=== PATIENT | male | born 1990 | race Caucasian/White ===

== ENCOUNTER 2016-12-21 00:50 | Emergency (ER) | payer SELFPAY ==
[~2016-12-21] VITALS: Ht 180.3 cm; Wt 70.3 kg
[2016-12-21 00:53] VITALS: BP 126/79
[2016-12-21] MEDS ORDERED: TETANUS-DIPTH-ACEL PERTUSSIS 0.5ML SYRG IM ONE (01:45)
== END 2016-12-21 01:41 | disposition home or self-care (01) ==
LOC: ER 00:52
DX: S61.001A Unspecified open wound of right thumb without damage to nail, initial encounter (principal); Z88.8 Allergy status to other drugs, medicaments and biological substances; W26.9XXA Contact with unspecified sharp object(s), initial encounter; Y93.89 Activity, other specified; Y99.8 Other external cause status; Y92.89 Other specified places as the place of occurrence of the external cause
CPT/HCPCS: 90471; 90715

== ENCOUNTER 2024-11-25 01:37 | Emergency (ER) | payer MEDICAID, OTHER ==
[~2024-11-25] VITALS: Ht 180.3 cm; Wt 92.6 kg
--- NOTE | 2024-11-25 02:17 | ED.PDOC ---
HPI Comments reffa: gurdeep HPI: Poor Historian. 34-year-old male presents to emergency department for evaluation of chest pain. He has been having proximally one-week history of dull midsternal chest discomfort but earlier past midnight patient had a left sided chest pain that woke him up from his sleep. Pain is nonradiating. No alleviating or precipitating factors. Pain was associated with some mild weakness and dizziness. Patient is accompanied by two children with him on his side. Patient ambulating independently in the ED. pain scale is currently 4/10. Patient was seen by Cardiology approximately five years ago and he said everything was normal. Past Medical History: Anxiety, Depression Past Surgical History: Denies any REVIEW OF SYSTEMS: CONSTITUTIONAL: Denies acute: fever, diaphoresis, chills, generalized weakness. HEAD: Denies acute: headache, photophobia Eyes: Denies acute: Double vision, vision loss, eye pain, eye discharge. EARS: Denies acute: tinnitus, hearing loss, ear discharge, ear pain, THROAT: Denies acute: sore throat, swelling, difficulty swallowing , pain with swallowing, change in voice. NECK: Denies acute: neck pain, neck swelling, stiff neck. HEART: Denies acute : palpitations, LUNGS: Denies acute: SOB, wheezing, cough, hemoptysis ABDOMEN: Denies acute: abdominal pain, Nausea, Vomiting, diarrhea, melena , hematemesis, hematochezia SKIN: Denies acute: rash, redness, lesions, itchiness. EXTREMITIES: Denies acute: calf pain, numbness, tingling, weakness, denies pain in extremity. Denies acute: Low back pain. Neuro: Denies acute: focal neurological deficit, motor or sensory focal neurological deficit, tremors, seizure like activity, confusion, dizziness, change in mental status, loss of bowel or bladder function, cauda equina like symptoms. : Denies acute: dysuria, hematuria, flank pain, increase in urinary frequency. PSYCH: Denies acute: hallucination, suicidal ideation, homicidal ideation. PHYSICAL EXAM: General: ----no----acute distress, awake and alert. Multiple tattoos Head: normocephalic, atraumatic. Neck: supple, trachea is midline, no swelling. Throat: Normal phonation. Eyes:, no erythema, no purulent discharge, no proptosis, no icterus. Heart: regular rate, regular rhythm, no significant murmur appreciated. Lungs: no apparent respiratory distress, Able to speak in full sentences. No wheezing, no rhonchi, no crackles. No stridors Clear to auscultation bilaterally. Abdomen: non tender to palpation, non distended, soft, no guarding, no rebound, + bowel sounds. Neuro: Awake, Alert, oriented to name, self, situation, follows commands GCS=15. Speech is normal. Skin: no petechia, no purpura, no cyanosis, non-pale, not jaundice. Lower extremities: --no - Pitting edema no deformity, no focal swelling, no calf TTP. Makes eye contact. moves all four extremities. Face: no apparent facial droop. Ambulating in the ED independently. ED COURSE: DISCLAIMER: This medical document was created using an electronic medical record system with voice recognition software and computerized dictation system. Although this document has been carefully reviewed, there might still be some phonetic and typ ographical errors. Occasional wrong-word or "sound-alike" substitutions may have occurred due to the inherent limitations of voice recognition software. These areas are purely typographical due to imperfections of the software programs and do not reflect any compromise in the patient's medical care. Please read the chart carefully and recognize, using context, where these substitutions have occurred. Chief Complaint: Chest Pain Time Seen by MD: 02:15 Primary Care Provider: UNK Reviewed Notes: Allergies Allergies: Coded Allergies: Cephalosporins (Verified Allergy, Unknown, 12/21/16) Sulfa Antibiotics (Verified Allergy, Unknown, 11/26/24) Home Meds No Active Prescriptions or Reported Meds Information Source: Patient Mode of Arrival: Ambulatory Past Medical History PAST MEDICAL HISTORY: Denies Surgical History: Denies all surgeries Social History Smoker: Non-Smoker Alcohol: Denies ETOH Use Drugs: Denies Drug Use Lives In: Home Was a procedure done? Was a procedure done?: No CP Differential Dx Differential Diagnosis: N/A Differential Diagnosis: Other (Ddx include but not limitied to gastritis, musculoskeletal pain, radiculopathy, atypical chest pain, dissection, aneurysm, ACS, unstable angina, hiatal hernia, GERD, anxiety, costochondritis, PE, pneumothroax, neoplasm, cardiac ischemia, drug abuse, anemia.) X-Ray, Labs, Meds, VS Vital Signs Date Time Temp Pulse Resp B/P (MAP) Pulse Ox O2 Delivery O2 Flow Rate FiO2 11/25/24 05:30 99 Room Air* 0 21 11/25/24 05:29 97.8 70 14 123/80 (94) 99 97.8 11/25/24 02:51 73 11/25/24 01:43 88 11/25/24 01:37 98.1 81 18 131/85 97 98.1 Lab Test 11/25/24 03:00 11/25/24 02:47 11/25/24 01:46 Range/Units Urine Opiates Screen Neg NEGATIVE Urine Fentanyl Screen Neg NEGATIVE Urine Barbiturates Screen Neg NEGATIVE Urine Phencyclidine Screen Neg NEGATIVE Urine Amphetamines Screen Neg NEGATIVE Urine Benzodiazepines Screen Pos NEGATIVE Urine Cocaine Screen Neg NEGATIVE Urine Cannabinoids Screen Neg NEGATIVE Troponin I High Sensitivity < 3 L < 3 L </=54 ng/L White Blood Count 4.6 4.4-10.8 10^3/uL Red Blood Count 5.35 4.5-5.90 10^6/uL Hemoglobin 15.8 13.5-17.5 g/dL Hematocrit 45.8 41.0-53.0 % Mean Corpuscular Volume 85.6 80.0-100.0 fL Mean Corpuscular Hemoglobin 29.5 28.0-32.0 pg Mean Corpuscular Hemoglobin Concent 34.4 32.0-36.0 g/dL Red Cell Distribution Width 12.6 11.8-14.3 % Platelet Count 274 140-450 10^3/uL Mean Platelet Volume 7.9 6.9-10.8 fL Neutrophils (%) (Auto) 51.6 37.0-80.0 % Lymphocytes (%) (Auto) 35.2 10.0-50.0 % Monocytes (%) (Auto) 10.8 0.0-12.0 % Eosinophils (%) (Auto) 2.0 0.0-7.0 % Basophils (%) (Auto) 0.4 0.0-2.0 % Neutrophils # (Auto) 2.4 1.6-8.6 10 ^3/uL Lymphocytes # (Auto) 1.6 0.4-5.4 10 ^3/uL Monocytes # (Auto) 0.5 0-1.3 10 ^3/uL Eosinophils # (Auto) 0.1 0-0.8 10 ^3/uL Basophils # (Auto) 0 0-0.2 10 ^3/uL Nucleated Red Blood Cells 0.1 % Sodium Level 141 136-145 mmol/L Potassium Level 4.4 3.5-5.1 mmol/L Chloride Level 104 98-107 mmol/L Carbon Dioxide Level 29 20-31 mmol/L Anion Gap 8 5-15 Blood Urea Nitrogen 17 9-23 mg/dL Creatinine 1.07 0.700-1.30 mg/dL Glomerular Filtration Rate Calc 94 >90 mL/min BUN/Creatinine Ratio 15.9 10.0-20.0 Serum Glucose 98 74-106 mg/dL Calcium Level 9.6 8.7-10.4 mg/dL Total Bilirubin 0.8 0.2-1.0 mg/dL Aspartate Amino Transferase (AST) 26 13-40 U/L Alanine Aminotransferase (ALT) 47 H 7-40 U/L Alkaline Phosphatase 59 46-116 U/L Total Protein 7.5 5.7-8.2 g/dL Albumin 5.0 H 3.2-4.8 g/dL [place] [address] Ph: [phone] DIAGNOSTIC IMAGING Diagnostic Imaging Report : [id number] Signed PATIENT: EN HAYDEN ACCT: [id number] UNIT: [id number] : 1990 LOC: ER ROOM / BED: / AGE / SEX: 34 / M ADM STATUS: REG ER SERVICE 0153 ORDERING PHYSICIAN: ARTHUR REESE DO PROCEDURE(s): CXRP - CHEST PORTABLE REASON: cp ORDER NUMBER(s): [id number], ACCESSION NUMBER(s): [id number] CHEST RADIOGRAPH Indication: cp Technique: Single frontal view of the chest was obtained COMPARISON: None FINDINGS: Lines and Tubes: None Lungs: Clear Pleura: No effusion. No pneumothorax. Cardiomediastinal contours: 2.4 cm right paratracheal dense nodular focus may represent a calcified lymph node. Bones: Unremarkable IMPRESSION: 1. No radiographic evidence of acute cardiopulmonary abnormality. 2. 2.4 cm right paratracheal dense nodular focus may represent a calcified lymph node. ATED BY: CHAVEZ RODRIGUEZ MD DICTATED DATE/TIME: 11/25/24238 SIGNED BY: CHAVEZ RODRIGUEZ MD SIGNED DATE/TIME: 11/25/24238 CC: Time of 1ST Reevaluation: 03:07 Reevaluation 1ST: Improved Patient Education/Counseling: Diagnosis, Treatment Family Education/Counseling: Other Comments MDM: patient presented with the above HPI.---cardiac---workup was initiated. patient was found with the above mentioned diagnosis. the following medications were ordered: please refer to order lists of meds and tests obtained by myself Dr. Reese. Patient ED course and VS have been stabilized. Patient has been reassessed in the ED and remained in a stable condition. Pertinent incidental findings were discussed with the patient and/or family. Patient/family voices understanding and is agreeable with plan. Patient has been observed in the ED adequate length of time to insure improvement/stability. Escalation of care considered: Consideration of escalation to observation or admission Patient's heart score is low Patient was DISCHARGED home in a stable condition. All the reports of any imaging studies that were ordered by myself were reviewed by myself. Departure 1 Departure Time of Disposition: 03:06 Impression: Primary Impression: Chest pain Additional Impression: Pulmonary nodule Disposition: HOME / SELF CARE / HOMELESS Condition: Stable Additional Instructions: Additional instructions: Please read all instructions provided in this packet carefully. You MUST follow-up with your primary care/family doctor in 1 to 2 days. If you are unable to see your primary care/family doctor, please return to our emergency room for re-assessment and re-evaluation in 1 to 2 days. Return to the emergency room here in our facility or to the nearest ER [facility] if your symptoms change or worsen. CONSULTATIONS: you MUST Follow-up for consultation as soon as possible with: --cardiology in 1-2 days. Please call for appointment. You MUST call the consultants office yourself to make an appointment. You may need to arrange that through your insurance and/or your primary/family doctor. If you are unable to see the agricultural consultant in 1 to 2 days, you must return to our emergency room (or any other ER of your choice) for re-assessment and re- evaluation. Adequate fluid hydration. Although you have been discharged from the Emergency Department, this does not mean that you have a "clean bill of health". No definitive diagnosis for your symptoms has been made today. It is possible that you are in the process of developing a serious illness. This is why you must return to the ED without fail if any new or worsening symptoms develop. Below is a copy of your radiological report for follow up: [address] [address] Ph: [phone] DIAGNOSTIC IMAGING Diagnostic Imaging Report : [id number] Signed PATIENT: EN HAYDEN ACCT: [id number] UNIT: [id number] : 1990 LOC: ER ROOM / BED: / AGE / SEX: 34 / M ADM STATUS: REG ER SERVICE 2 ORDERING PHYSICIAN: ARTHUR REESE DO PROCEDURE(s): CXRP - CHEST PORTABLE REASON: cp ORDER NUMBER(s): [id number], ACCESSION NUMBER(s): [id number] CHEST RADIOGRAPH Indication: cp Technique: Single frontal view of the chest was obtained COMPARISON: None FINDINGS: Lines and Tubes: None Lungs: Clear Pleura: No effusion. No pneumothorax. Cardiomediastinal contours: 2.4 cm right paratracheal dense nodular focus may represent a calcified lymph node. Bones: Unremarkable IMPRESSION: 1. No radiographic evidence of acute cardiopulmonary abnormality. 2. 2.4 cm right paratracheal dense nodular focus may represent a calcified lymph node. ATED BY: CHAVEZ RODRIGUEZ MD DICTATED DATE/TIME: 11/25/24238 SIGNED BY: CHAVEZ RODRIGUEZ MD SIGNED DATE/TIME: 11/25/24238 CC: e-Prescriptions No Active Prescriptions or Reported Meds Discharged With: Self Critical Care Note Critical Care Time?: No Heart Score Heart Score: Heart Score Response (Comments) Value History Slightly Suspicious 0 EKG Normal 0 Age <45 0 Risk Factors No known risk factors 0 Troponin Normal limit 0 Total 0 I personally scribed for ARTHUR REESE DO ([email or web address]) on 11/25/24 at 02:23. Electronically submitted by Jose Lim ([email or web address]). ARTHUR REESE DO Nov 25, 2024 02:17
[2024-11-25 02:19] LABS: Hematocrit 45.8 % (41.0-53.0); Hemoglobin 15.8 g/dL (13.5-17.5); Mean Corpuscular Hemoglobin 29.5 pg (28.0-32.0); Mean Corpuscular Volume 85.6 fL (80.0-100.0); Nucleated Red Blood Cells % 0.1 %
[2024-11-25 02:36] LABS: Alkaline Phosphatase 59 U/L (46-116); Anion Gap 8 (5-15); BUN/Creatinine Ratio 15.9 (10.0-20.0); Bilirubin, Total 0.8 mg/dL (0.2-1.0); Blood Urea Nitrogen 17 mg/dL (9-23); Calcium 9.6 mg/dL (8.7-10.4); Carbon Dioxide 29 mmol/L (20-31); Chloride 104 mmol/L (98-107); Glucose 98 mg/dL (74-106); Potassium 4.4 mmol/L (3.5-5.1); Sodium 141 mmol/L (136-145); Total Protein 7.5 g/dL (5.7-8.2)
[2024-11-25 02:38] LABS: Alanine Aminotransferase 47 U/L (7-40)
[2024-11-25 02:39] LABS: Albumin 5.0 g/dL (3.2-4.8)
--- NOTE | 2024-11-25 02:42 | DVH ---
CHEST RADIOGRAPH Indication: cp Technique: Single frontal view of the chest was obtained COMPARISON: None FINDINGS: Lines and Tubes: None Lungs: Clear Pleura: No effusion. No pneumothorax. Cardiomediastinal contours: 2.4 cm right paratracheal dense nodular focus may represent a calcified l ymph node. Bones: Unremarkable IMPRESSION: 1. No radiographic evidence of acute cardiopulmonary abnormality. 2. 2.4 cm right paratracheal dense nodular focus may represent a calcified lymph node.
[2024-11-25 03:38] LABS: Benzodiazephine Screen, Urine Pos (NEGATIVE)
[2024-11-25 03:41] LABS: Amphetamine Screen, Urine Neg (NEGATIVE); Barbiturate Scree,Urine Neg (NEGATIVE); Cannabinoid Screen, Urine Neg (NEGATIVE); Cocaine Screen, Urine Neg (NEGATIVE); Opiate Scree,Urine Neg (NEGATIVE); Phencyclidine Screen, Urine Neg (NEGATIVE)
--- NOTE | 2024-11-25 03:42 | ECG ---
[facility] Test Date: 2024-11-25 Test Time: 02:51:20 Pat Name: EN EGANFERinku Department: [facility] ED Patient ID: [facility]-[id number] Room: Gender: Freight Representative: KATIA : 1990 Requested By: ARTHUR REESE Order Number: [id number] Reading MD: Measurements Intervals [place] Rate: 73 P: 56 [place]: 122 QRS: 70 QRSD: 93 T: 69 QT: 356 QTc: 393 Interpretive Statements Sinus rhythm Please click the below link to view image of tracing.
[2024-11-25 05:29] VITALS: BP 123/80; PULSE 70; RESP 14; TEMP 97.8
[2024-11-25 05:30] VITALS: O2SAT 99
--- NOTE | 2024-11-25 07:17 | ECG ---
[facility] Test Date: 2024-11-25 Test Time: 01:43:40 Pat Name: EN ROMAN REFFERinku Department: [facility] ED Patient ID: [facility]-[id number] Room: Gender: Facility Coordinator: KYARA : 1990 Requested By: ARTHUR REESE Order Number: [id number] Reading MD: Measurements Intervals [place] Rate: 88 P: 54 [place]: 122 QRS: 59 QRSD: 89 T: 58 QT: 347 QTc: 420 Interpretive Statements Sinus rhythm Please click the below link to view image of tracing.
--- NOTE | 2024-11-25 18:44 | ECG ---
[facility] Test Date: 2024-11-25 Test Time: 18:43:03 Pat Name: EN MENARD Department: Room: Gender: M Educational Resource Coordinator: GP : 1990 Requested By: ARTHUR REESE Order Number: [id number] Reading MD: Measurements Intervals [place] Rate: 89 P: 73 [place]: 122 QRS: 50 QRSD: 77 T: 30 QT: 332 QTc: 404 Interpretive Statements Sinus rhythm Baseline wander in lead(s) II,III,aVR,aVL,aVF,V5 Please click the below link to view image of tracing.
== END 2024-11-25 05:34 | disposition home or self-care (01) ==
LOC: ER 01:44
DX: R07.89 Other chest pain (principal); R91.1 Solitary pulmonary nodule; F41.9 Anxiety disorder, unspecified; F32.A Depression, unspecified; Z88.1 Allergy status to other antibiotic agents
CPT/HCPCS: 36415; 71045; 80053; 80307; 84484; 85025; 93005

== ENCOUNTER 2024-11-25 18:37 | Inpatient (IN) | payer OTHER, BC ==
[~2024-11-25] VITALS: Ht 180.3 cm; Wt 94.9 kg
[2024-11-25 19:43] LABS: Hematocrit 46.1 % (41.0-53.0); Hemoglobin 16.1 g/dL (13.5-17.5); Mean Corpuscular Hemoglobin 29.8 pg (28.0-32.0); Mean Corpuscular Volume 85.7 fL (80.0-100.0); Nucleated Red Blood Cells % 0.1 %
--- NOTE | 2024-11-25 19:49 | ED.PDOC ---
HPI Comments Patient was seen yesterday for the same thing. He called his PCP today who advised him to come to the hospital for evaluation. No changes in presentation since yesterday. 34-year-old male presents to emergency department for evaluation of chest pain. Patient was seen at the ED yesterday, 11/24/24, for the same symptoms. Patient returned to the ED today following consultation with PCP. He has been having proximally one-week history of dull midsternal chest discomfort but earlier past midnight patient had a left sided chest pain that woke him up from his sleep. Pain is nonradiating. No alleviating or precipitating factors. Pain was associated with some mild weakness and dizziness. Patient is accompanied by two children with him on his side. Patient ambulating independently in the ED. pain scale is currently 4/10. Patient was seen by Cardiology approximately five years ago and he said everything was normal. Past Medical History: Anxiety, Depression Past Surgical History: Denies any REVIEW OF SYSTEMS: CONSTITUTIONAL: Denies acute: fever, diaphoresis, chills, generalized weakness. HEAD: Denies acute: headache, photophobia Eyes: Denies acute: Double vision, vision loss, eye pain, eye discharge. EARS: Denies acute: tinnitus, hearing loss, ear discharge, ear pain, THROAT: Denies acute: sore throat, swelling, difficulty swallowing , pain with swallowing, change in voice. NECK: Denies acute: neck pain, neck swelling, stiff neck. HEART: Denies acute : palpitations, LUNGS: Denies acute: SOB, wheezing, cough, hemoptysis ABDOMEN: Denies acute: abdominal pain, Nausea, Vomiting, diarrhea, melena , hematemesis, hematochezia SKIN: Denies acute: rash, redness, lesions, itchiness. EXTREMITIES: Denies acute: calf pain, numbness, tingling, weakness, denies pain in extremity. Denies acute: Low back pain. Neuro: Denies acute: focal neurological deficit, motor or sensory focal neurological deficit, tremors, seizure like activity, confusion, dizziness, change in mental status, loss of bowel or bladder function, cauda equina like symptoms. : Denies acute: dysuria, hematuria, flank pain, increase in urinary frequency. PSYCH: Denies acute: hallucination, suicidal ideation, homicidal ideation. PHYSICAL EXAM: General: ----no----acute distress, awake and alert. Multiple tattoos Head: normocephalic, atraumatic. Neck: supple, trachea is midline, no swelling. Throat: Normal phonation. Eyes:, no erythema, no purulent discharge, no proptosis, no icterus. Heart: regular rate, regular rhythm, no significant murmur appreciated. Lungs: no apparent respiratory distress, Able to speak in full sentences. No wheezing, no rhonchi, no crackles. No stridors Clear to auscultation bilaterally. Abdomen: non tender to palpation, non distended, soft, no guarding, no rebound, + bowel sounds. Neuro: Awake, Alert, oriented to name, self, situation, follows commands GCS=15. Speech is normal. Skin: no petechia, no purpura, no cyanosis, non-pale, not jaundice. Lower extremities: --no - Pitting edema no deformity, no focal swelling, no calf TTP. Makes eye contact. moves all four extremities. Face: no apparent facial droop. Ambulating in the ED independently. Chief Complaint: Chest Pain Time Seen by MD: 19:42 Primary Care Provider: UNK Reviewed Notes: Nurses Notes, Medications, Allergies Allergies: Coded Allergies: Cephalosporins (Verified Allergy, Unknown, 12/21/16) Information Source: Patient Mode of Arrival: Ambulatory Location: Substernal Radiation: No Radiation Quality: Stabbing Onset: At Rest, With Light Exertion, With Heavy Exertion Physical Exam General Appearance: Other (a) HEENT: Other (a) Neck: Other (a) Respiratory: Other (a) Cardiovascular: Other (a) Breast Exam: Other (a) Gastrointestinal: Other (a) Genitalia: Other (a) Pelvic: Other (a) Rectal: Other (a) Extremities: Other (a) Neurologic: Other (a) Cerebellar Function: Other (a) Reflexes: Other (a) Skin: Other (a) Lymphatic: Other (a) Was a procedure done? Was a procedure done?: No CP Differential Dx Differential Diagnosis: Anxiety / Panic Attack, N/A Differential Diagnosis: HTN Essential, HTN Accelerated Differential Diagnosis: Chest Wall Pain, Other (Ddx include but not limitied to gastritis, musculoskeletal pain, radiculopathy, atypical chest pain, dissection, aneurysm, ACS, unstable angina, hiatal hernia, GERD, anxiety, costochondritis, PE, pneumothroax, neoplasm, cardiac ischemia, drug abuse, anemia.) X-Ray, Labs, Meds, VS Vital Signs Date Time Temp Pulse Resp B/P (MAP) Pulse Ox O2 Delivery O2 Flow Rate FiO2 11/25/24 18:43 89 11/25/24 18:40 97.0 86 18 135/84 97 97.0 Lab Test 11/25/24 19:04 11/25/24 18:40 Range/Units Troponin I High Sensitivity < 3 L < 3 L </=54 ng/L White Blood Count 5.2 4.4-10.8 10^3/uL Red Blood Count 5.39 4.5-5.90 10^6/uL Hemoglobin 16.1 13.5-17.5 g/dL Hematocrit 46.1 41.0-53.0 % Mean Corpuscular Volume 85.7 80.0-100.0 fL Mean Corpuscular Hemoglobin 29.8 28.0-32.0 pg Mean Corpuscular Hemoglobin Concent 34.8 32.0-36.0 g/dL Red Cell Distribution Width 12.7 11.8-14.3 % Platelet Count 316 140-450 10^3/uL Mean Platelet Volume 7.7 6.9-10.8 fL Neutrophils (%) (Auto) 57.8 37.0-80.0 % Lymphocytes (%) (Auto) 31.2 10.0-50.0 % Monocytes (%) (Auto) 9.9 0.0-12.0 % Eosinophils (%) (Auto) 0.6 0.0-7.0 % Basophils (%) (Auto) 0.5 0.0-2.0 % Neutrophils # (Auto) 3.0 1.6-8.6 10 ^3/uL Lymphocytes # (Auto) 1.6 0.4-5.4 10 ^3/uL Monocytes # (Auto) 0.5 0-1.3 10 ^3/uL Eosinophils # (Auto) 0 0-0.8 10 ^3/uL Basophils # (Auto) 0 0-0.2 10 ^3/uL Nucleated Red Blood Cells 0.1 % D-Dimer, Quantitative 0.24 0.0-0.49 mg/L FEU Sodium Level 140 136-145 mmol/L Potassium Level 4.0 3.5-5.1 mmol/L Chloride Level 102 98-107 mmol/L Carbon Dioxide Level 28 20-31 mmol/L Anion Gap 10 5-15 Blood Urea Nitrogen 12 9-23 mg/dL Creatinine 1.14 0.700-1.30 mg/dL Glomerular Filtration Rate Calc 87 >90 mL/min BUN/Creatinine Ratio 10.5 10.0-20.0 Serum Glucose 87 74-106 mg/dL Calcium Level 10.0 8.7-10.4 mg/dL Total Bilirubin 0.8 0.2-1.0 mg/dL Aspartate Amino Transferase (AST) 28 13-40 U/L Alanine Aminotransferase (ALT) 45 H 7-40 U/L Alkaline Phosphatase 58 46-116 U/L B-Type Natriuretic Peptide 3.64 0-100 pg/mL Total Protein 8.1 5.7-8.2 g/dL Albumin 5.3 H 3.2-4.8 g/dL [place] [address] Ph: [phone] DIAGNOSTIC IMAGING Diagnostic Imaging Report : [id number] Signed PATIENT: ABEL MENARDDYLANACCT: [id number] UNIT: [id number] : 1990 LOC: OVERFLOW ROOM / BED: [address] [place] [address] AGE / SEX: 34 / M ADM STATUS: ADM IN SERVICE 0150 ORDERING PHYSICIAN: ARVIN TOM RESIDENT PROCEDURE(s): CXR1 - CHEST XRAY 1 VIEW REASON: CHEST PAIN ORDER NUMBER(s): [id number], ACCESSION NUMBER(s): [id number] CHEST RADIOGRAPH Indication: CHEST PAIN Technique: Single frontal view of the chest was obtained COMPARISON: XY CHEST PORTABLE on DOS: 11/25/24 FINDINGS: Lines and Tubes: None Lungs: Clear Pleura: No effusion. No pneumothorax. Cardiomediastinal contours: Unremarkable Bones: Unremarkable IMPRESSION: 1. No acute disease. Time of 1ST Reevaluation: 20:23 Reevaluation 1ST: Unchanged Patient Education/Counseling: Diagnosis, Treatment Family Education/Counseling: No Family Present Medical Screening: No EMC Exist At This Time Comments MDM: patient presented with the above HPI.--cardiac----workup was initiated. patient was found with the above mentioned diagnosis. the following medications were ordered: please refer to order lists of meds and tests obtained by myself Dr. Reese. Patient ED course and VS have been stabilized. Patient has been reassessed in the ED and remained in a stable condition. Pertinent incidental findings were discussed with the patient and/or family. Patient/family voices understanding and is agreeable with plan. Patient has been observed in the ED adequate length of time to insure improvement/stability. Escalation of care considered: Consideration of escalation to observation or admission Patient states an unable to see a country singer any time soon. Patient was ADMITTED to the medicine team for further evaluation and treatment of their presentation. All the reports of any imaging studies that were ordered by myself were reviewed by myself. SEPSIS Sepsis Screen Date sepsis recognized/suspect: Nov 25, 2024 Time Sepsis recognized/suspect: 1844 Recent Procedure: No On Antibiotic Therapy: No Respiratory Rate >20: No Heart Rate >90: No Temp<36 C (96.8 F) or >38.3 C: No SBP <90 or MAP <65 mmHG: No New Acute Mental Status Change: No Is the patient on CPAP, BIPAP,: No Physician Orders Urinalysis (11/25/24 18:43) Electrocardigram (11/25/24 18:47) Electrocardigram (11/25/24 19:47) Electrocardigram (11/25/24 21:47) Data Administrator (11/25/24 ) Vital Signs Date Time Temp Pulse Resp B/P (MAP) Pulse Ox O2 Delivery O2 Flow Rate FiO2 11/25/24 18:43 89 11/25/24 18:40 97.0 86 18 135/84 97 97.0 Laboratory Tests Test 11/25/24 18:40 White Blood Count 5.2 10^3/uL (4.4-10.8) Departure 1 Departure Time of Disposition: 20:33 Impression: Primary Impression: Chest pain Disposition: ADMITTED INPATIENT [facility]mit to[facility] Condition: Guarded Additional Instructions: [address] [address] Ph: [phone] DIAGNOSTIC IMAGING Diagnostic Imaging Report : [id number] Signed PATIENT: EN HAYDEN ACCT: [id number] UNIT: [id number] : 1990 LOC: OVERFLOW ROOM / BED: 1009-ERT / A AGE / SEX: 34 / M ADM STATUS: ADM IN SERVICE 0150 ORDERING PHYSICIAN: ARVIN TOM RESIDENT PROCEDURE(s): CXR1 - CHEST XRAY 1 VIEW REASON: CHEST PAIN ORDER NUMBER(s): [id number], ACCESSION NUMBER(s): [id number] CHEST RADIOGRAPH Indication: CHEST PAIN Technique: Single frontal view of the chest was obtained COMPARISON: XY CHEST PORTABLE on DOS: 11/25/24 FINDINGS: Lines and Tubes: None Lungs: Clear Pleura: No effusion. No pneumothorax. Cardiomediastinal contours: Unremarkable Bones: Unremarkable IMPRESSION: 1. No acute disease. ATED BY: CHAVEZ ARMENDARIZ MD DICTATED DATE/TIME: 11/26/24243 SIGNED BY: CHAVEZ ARMENDARIZ MD SIGNED DATE/TIME: 11/26/24243 CC: Discharged With: Self Critical Care Note Critical Care Time?: No Heart Score Heart Score: Heart Score Response (Comments) Value History Slightly Suspicious 0 EKG Normal 0 Age <45 0 Risk Factors 1 or 2 risk factors 1 Troponin Normal limit 0 Total 1 I personally scribed for ARTHUR REESE DO ([email or web address]) on 11/25/24 at 19:49. Electronically submitted by Sherrill Javier ([employer]). I personally scribed for ARTHUR REESE DO ([email or web address]) on 11/25/24 at 19:50. Electronically submitted by Sherrill Javier ([employer]). I personally scribed for ARTHUR REESE DO ([email or web address]) on 11/26/24 at 03:11. Electronically submitted by Sherrill Javier ([employer]). I personally scribed for ARTHUR REESE DO ([email or web address]) on 11/26/24 at 03:28. Electronically submitted by Sherrill Javier ([employer]). ARTHUR REESE DO Nov 25, 2024 19:49
[2024-11-25 20:23] LABS: Alkaline Phosphatase 58 U/L (46-116); Anion Gap 10 (5-15); BUN/Creatinine Ratio 10.5 (10.0-20.0); Bilirubin, Total 0.8 mg/dL (0.2-1.0); Blood Urea Nitrogen 12 mg/dL (9-23); Calcium 10.0 mg/dL (8.7-10.4); Carbon Dioxide 28 mmol/L (20-31); Chloride 102 mmol/L (98-107); Glucose 87 mg/dL (74-106); Potassium 4.0 mmol/L (3.5-5.1); Sodium 140 mmol/L (136-145); Total Protein 8.1 g/dL (5.7-8.2)
[2024-11-25 20:29] LABS: Alanine Aminotransferase 45 U/L (7-40); Albumin 5.3 g/dL (3.2-4.8)
[2024-11-25] MEDS ORDERED: NITROGLYCERIN 0.4 MG SL TAB SL PRN (23:30)
[2024-11-25] MEDS ORDERED: MORPHINE SULFATE INJ 2 MG/ml SYRG IV PRN (23:30)
[2024-11-26 01:44] LABS: Triglycerides 64 mg/dL (< 150)
[2024-11-26 01:45] LABS: Cholesterol 186 mg/dL (< 200)
[2024-11-26 01:46] LABS: HDL Cholesterol 39 mg/dL (40-59)
[2024-11-26 01:47] LABS: COVID19 ANTIGEN SOFIA FIA NEGATIVE (NEGATIVE)
[2024-11-26] MEDS: PANTOPRAZOLE 40 MG/10 ML VIAL INJ IV ONE (02:00)
--- NOTE | 2024-11-26 02:47 | DVH ---
CHEST RADIOGRAPH Indication: CHEST PAIN Technique: Single frontal view of the chest was obtained COMPARISON: XY CHEST PORTABLE on DOS: 11/25/24 FINDINGS: Lines and Tubes: None Lungs: Clear Pleura: No effusion. No pneumothorax. Cardiomediastinal contours: Unremarkable Bones: Unremarkable IMPRESSION: 1. No acute disease.
[2024-11-26 03:34] VITALS: BP 125/80; PULSE 70; RESP 19; TEMP 97.5; O2SAT 95
[2024-11-26] MEDS: ATORVASTATIN 20 MG TAB PO ONE (03:46)
[2024-11-26 04:57] VITALS: BP 120/65; PULSE 54; RESP 19; TEMP 97.7; O2SAT 97
--- NOTE | 2024-11-26 04:57 | DVHHPRES ---
History of Present Illness Resident Creating Document: ARVIN TOM RESIDENT History of Present Illness Ignacio Jefferson is a 34 year old male with past medical history Anxiety, and depression ED with chief complaints of 7/10 sharp burning pain in the chest which is radiating to the left shoulder and occurred suddenly which awoke him from his sleep yesterday. Patient also complained of nausea, dizziness, 2 episodes of watery diarrhea since 2 days. Patient states that he had this midsternal chest pain associated with shortness of breath since 1 week. Patient had come to the ED yesterday with the similar complaints. Patient returned to the ED following an appointment with his PCP who recommended him to come to the ED. patient states his pain now is 4/10. Patient is admitted for further management. Past surgical history: Tonsillectomy History: Reviewed, noncontributory Personal history: Denies smoking, drinks occasionally, states he quit smoking w eed 5 years ago. Lives with: Family PCP: Dr. Hernandes Review of Systems Constitutional: Yes: Other (dizzy); No: Fever, Chills, Sweats, Weakness, Malaise Eyes: No: Pain, Vision change, Conjunctivae inflammation, Eyelid inflammation, Other, Redness ENT: No: Ear pain, Ear discharge, Nose pain, Nose discharge, Nose congestion, Mouth pain, Mouth swelling, Throat pain, Throat swelling, Other Respiratory: Shortness of breath; No: Cough, Dry, SOB with excertion, Wheezing, Hemoptysis, Pleuritic Pain, Sputum, Wheezing, Other Cardiovascular: Chest Pain; No: Palpitations, Orthopnea, Paroxysmal Noc. Dyspnea, Edema, Lt Headedness, Other Gastrointestinal: Nausea; No: Vomiting, Abdominal Pain, Diarrhea, Constipation, Melena, Hematochezia, Other Genitourinary: No Dysuria, No Frequency, No Incontinence, No Hematuria, No Retention, No Other Musculoskeletal: No: other, neck pain, shoulder pain, arm pain, back pain, hand pain, leg pain, foot pain Skin: No: Rash, Lesions, Jaundice, Bruising, Other Neurological: No: Weakness, Numbness, Incoordination, Change in speech, Confusion, Seizures, Other Allergies: Coded Allergies: Cephalosporins (Verified Allergy, Unknown, 12/21/16) Sulfa Antibiotics (Verified Allergy, Unknown, 11/26/24) Medications Current Medications Medications Dose Ordered Sig/Lex Route Start Time Stop Time Status Last Admin Dose Admin Nitroglycerin 0.4 mg Q5MINP PRN SL 11/25/24 23:30 Morphine Sulfate 2 mg Q30M PRN IV 11/25/24 23:30 Pantoprazole Sodium 40 mg DAILY IV 11/26/24 10:00 Exam Vital Signs Vital Signs Date Time Temp Pulse Resp B/P (MAP) Pulse Ox O2 Delivery O2 Flow Rate FiO2 11/26/24 03:34 Room Air* 0 21 11/26/24 03:34 97.5 70 19 125/80 (95) 95 97.5 Exam General: Patient alert and oriented in person, place and time. Patient following commands. In mild distress HEENT: Normocephalic, atraumatic, moist mucous membranes Respiratory/pulmonary: Clear lungs bilaterally, vesicular murmurs present in almost all lung aragon, no associated crackles or wheezes. Cardiovascular: Normal heart sounds S1 and S2 with no associated murmurs Abdomen: Abdomen nondistended, there is no pain to palpation in any of the abdominal quadrants, no palpable masses. Extremities: There is no peripheral edema present at the lower extremities. Peripheral Pulses: 3+ Radial (R). 3+ Radial (L). 3+ Dorsalis pedis (R). 3+ Dorsalis pedis(L) Skin: No rashes or pruritus, there is no sacral edema present at this time. Neurological: Intact cranial nerves with no focal neurologic deficits Psych/mood: Anxious affect Labs/Xrays Labs Test 11/26/24 00:52 11/25/24 23:35 11/25/24 18:40 Range/Units SARS-CoV-2 Antigen (Rapid) Negative NEGATIVE D-Dimer, Quantitative 0.30 0.0-0.49 mg/L FEU Troponin I High Sensitivity < 3 L </=54 ng/L Triglycerides Level 64 < 150 mg/dL Cholesterol Level 186 < 200 mg/dL LDL Cholesterol 142 H < 100 mg/dL HDL Cholesterol 39 L 40-59 mg/dL White Blood Count 5.2 4.4-10.8 10^3/uL Red Blood Count 5.39 4.5-5.90 10^6/uL Hemoglobin 16.1 13.5-17.5 g/dL Hematocrit 46.1 41.0-53.0 % Mean Corpuscular Volume 85.7 80.0-100.0 fL Mean Corpuscular Hemoglobin 29.8 28.0-32.0 pg Mean Corpuscular Hemoglobin Concent 34.8 32.0-36.0 g/dL Red Cell Distribution Width 12.7 11.8-14.3 % Platelet Count 316 140-450 10^3/uL Mean Platelet Volume 7.7 6.9-10.8 fL Neutrophils (%) (Auto) 57.8 37.0-80.0 % Lymphocytes (%) (Auto) 31.2 10.0-50.0 % Monocytes (%) (Auto) 9.9 0.0-12.0 % Eosinophils (%) (Auto) 0.6 0.0-7.0 % Basophils (%) (Auto) 0.5 0.0-2.0 % Neutrophils # (Auto) 3.0 1.6-8.6 10 ^3/uL Lymphocytes # (Auto) 1.6 0.4-5.4 10 ^3/uL Monocytes # (Auto) 0.5 0-1.3 10 ^3/uL Eosinophils # (Auto) 0 0-0.8 10 ^3/uL Basophils # (Auto) 0 0-0.2 10 ^3/uL Nucleated Red Blood Cells 0.1 % Sodium Level 140 136-145 mmol/L Potassium Level 4.0 3.5-5.1 mmol/L Chloride Level 102 98-107 mmol/L Carbon Dioxide Level 28 20-31 mmol/L Anion Gap 10 5-15 Blood Urea Nitrogen 12 9-23 mg/dL Creatinine 1.14 0.700-1.30 mg/dL Glomerular Filtration Rate Calc 87 >90 mL/min BUN/Creatinine Ratio 10.5 10.0-20.0 Serum Glucose 87 74-106 mg/dL Calcium Level 10.0 8.7-10.4 mg/dL Total Bilirubin 0.8 0.2-1.0 mg/dL Aspartate Amino Transferase (AST) 28 13-40 U/L Alanine Aminotransferase (ALT) 45 H 7-40 U/L Alkaline Phosphatase 58 46-116 U/L B-Type Natriuretic Peptide 3.64 0-100 pg/mL Total Protein 8.1 5.7-8.2 g/dL Albumin 5.3 H 3.2-4.8 g/dL SEPSIS Sepsis Screen Date sepsis recognized/suspect: Nov 25, 2024 Time Sepsis recognized/suspect: 1844 Recent Procedure: No On Antibiotic Therapy: No Respiratory Rate >20: No Heart Rate >90: No Temp<36 C (96.8 F) or >38.3 C: No SBP <90 or MAP <65 mmHG: No New Acute Mental Status Change: No Is the patient on CPAP, BIPAP,: No Physician Orders Admit (11/25/24 23:19) Nitroglycerin Sublingual (Ntrostat Subli (11/25/24 23:30) Morphine Sulfate Injection (11/25/24 23:30) Oxygen By Nasal Cannula (11/25/24 23:19) Stat Ekg For Chest Pain (11/25/24 23:19) Notify Md Of Changes From Base (11/25/24 23:19) Scheduler For 24 Hours (11/25/24 23:19) Emergency Dysrhythmia Protocol (11/25/24 23:19) Rhythm Strips Once Every Shift (11/25/24 23:19) Electrocardigram (11/25/24 23:20) Chest Xray 1 View (11/26/24 01:50) Troponin-I Hs (11/26/24 01:50) Electrocardigram (11/26/24 01:50) Pantoprazole (Protonix) (11/26/24 10:00) Vital Signs Date Time Temp Pulse Resp B/P (MAP) Pulse Ox O2 Delivery O2 Flow Rate FiO2 11/26/24 03:34 Room Air* 0 21 11/26/24 03:34 97.5 70 19 125/80 (95) 95 97.5 Laboratory Tests Test 11/25/24 18:40 White Blood Count 5.2 10^3/uL (4.4-10.8) Medications Medications Dose Ordered Sig/Lex Route Start Time Stop Time Status Last Admin Dose Admin Aspirin 162 mg ONCE ONCE PO 11/26/24 02:00 11/26/24 02:04 DC 11/26/24 02:00 162 MG Atorvastatin Calcium 40 mg ONCE ONCE PO 11/26/24 02:00 11/26/24 02:04 DC 11/26/24 03:46 40 MG Pantoprazole Sodium 40 mg ONCE ONCE IV 11/26/24 02:00 11/26/24 02:04 DC 11/26/24 02:00 40 MG Assessment/Plan Assessment/Plan Assessment and plan #Acute chest pain, rule out ACS ? Gastritis ? Panic attack -aspirin -atorvastatin once - IV morphine - EKG - monitor labs # GERD - pantoprazole #? Panic attack - Ativan PRN # hyperbilirubinemia -mild, follow with repeat labs # Dyslipidemia -lifestyle modification #Anxiety #depression - follow-up with psychiatry outpatient - continue home meds PPI prophylaxis: Pantoprazole DVT prophylaxis: not indicated Goals of care addressed with the patient for more than 33 minutes: Full code status Case discussed with Dr. Hernandes , patient and nurse Plan discussed with: Patient My Orders Orders - ARVIN TOM RESIDENT Procedure Category Date Status Time Admit ADMIT 11/25/24 Transmitted 23:19 Nitroglycerin [facility] 11/25/24 In Process Sublingual (Ntrostat 23:30 Morphine Sulfate PHA 11/25/24 In Process Injection 23:30 Oxygen By Nasal RT 11/25/24 Transmitted Cannula 23:19 Stat Ekg For Chest [facility] 11/25/24 In Process Pain 23:19 Notify Md Of Changes [facility] 11/25/24 In Process From Base 23:19 Scheduler For [facility] 11/25/24 In Process 24 Hours 23:19 Emergency Dysrhythmia [facility] 11/25/24 In Process Protocol 23:19 Rhythm Strips Once [facility] 11/25/24 In Process Every Shift 23:19 Electrocardigram EKG 11/25/24 Logged 23:20 Chest Xray 1 View XY 11/26/24 Resulted 01:50 Troponin-I Hs LAB 11/26/24 Logged 01:50 Electrocardigram EKG 11/26/24 Logged 01:50 Pantoprazole PHA 11/26/24 In Process (Protonix) 10:00 Date of Service: Nov 25, 2024 Billing Provider: ORLY HERNANDES MD Common Visit Codes: [id number] INP/OBS CARE (HIGH) Secondary Visit Codes: [id number] CARE PLAN 30 MINUTES ARVIN TOM RESIDENT Nov 26, 2024 04:57 CARMENCITA GARCIA RESIDENT Nov 26, 2024 08:10 ORLY HERNANDES MD Nov 26, 2024 19:36
[2024-11-26 07:20] LABS: Hematocrit 43.8 % (41.0-53.0); Hemoglobin 15.1 g/dL (13.5-17.5); Mean Corpuscular Hemoglobin 29.7 pg (28.0-32.0); Mean Corpuscular Volume 85.8 fL (80.0-100.0); Nucleated Red Blood Cells % 0.0 %
[2024-11-26 07:30] LABS: Albumin 4.7 g/dL (3.2-4.8); Alkaline Phosphatase 52 U/L (46-116); Anion Gap 9 (5-15); BUN/Creatinine Ratio 13.9 (10.0-20.0); Blood Urea Nitrogen 17 mg/dL (9-23); Calcium 9.5 mg/dL (8.7-10.4); Carbon Dioxide 29 mmol/L (20-31); Chloride 102 mmol/L (98-107); Glucose 86 mg/dL (74-106); Potassium 4.0 mmol/L (3.5-5.1); Sodium 140 mmol/L (136-145); Total Protein 7.3 g/dL (5.7-8.2)
[2024-11-26 07:32] LABS: Alanine Aminotransferase 42 U/L (7-40); Bilirubin, Total 1.3 mg/dL (0.2-1.0)
[2024-11-26] MEDS: PANTOPRAZOLE 40 MG/10 ML VIAL INJ IV SCH (09:55)
[2024-11-26] MEDS: LORazepam 0.5 MG TAB PO PRN (17:27)
[2024-11-26 17:59] LABS: Urine Protein, UAD TRACE (Negative)
[2024-11-26 18:00] VITALS: BP 123/84; PULSE 68; RESP 17; TEMP 98.3; O2SAT 98
[2024-11-26 20:15] VITALS: PULSE 68; PULSE 80; RESP 17; O2SAT 0
[2024-11-26 21:00] VITALS: BP 115/78; PULSE 64; RESP 18; TEMP 97.7; O2SAT 97
[2024-11-27 01:00] VITALS: BP 111/67; PULSE 63; RESP 18; TEMP 97.8; O2SAT 98
[2024-11-27 05:00] VITALS: BP 105/68; PULSE 66; RESP 17; TEMP 97.7; O2SAT 98
[2024-11-27 08:00] VITALS: O2SAT 0
[2024-11-27 09:00] VITALS: BP 112/73; PULSE 68; RESP 19; TEMP 97.5; O2SAT 96
--- NOTE | 2024-11-27 12:02 | DVHDS2 ---
Discharge Summary Date of Admission Nov 25, 2024 at 23:19 Date of Discharge: Nov 27, 2024 Labs/Diagnostic Data: Laboratory Results Test 11/26/24 17:00 11/26/24 06:39 11/26/24 00:52 11/25/24 23:35 Urine Color Yellow (Yellow) Urine Clarity Clear (Clear) Urine pH 6.0 (5.0-9.0) Urine Specific [place] 1.031 (1.001-1.035) Urine Protein Trace (Negative) Urine Ketones Negative (Negative) Urine Blood Negative /uL (Negative) Urine Nitrite Negative (Negative) Urine Bilirubin Negative (Negative) Urine Urobilinogen 8 mg/dL (Negative) Urine Leukocyte Esterase Negative /uL (Negative) Urine RBC None seen /hpf (0 - 3) Urine Microscopic WBC 2 /HPF (0-3) Urine Squamous Epithelial Cells Few /hpf (<5) Urine Bacteria None seen /hpf (None Seen) Urine Mucus Few (None Seen) Urine Glucose Normal mg/dL (Normal) White Blood Count 4.5 10^3/uL (4.4-10.8) Red Blood Count 5.10 10^6/uL (4.5-5.90) Hemoglobin 15.1 g/dL (13.5-17.5) Hematocrit 43.8 % (41.0-53.0) Mean Corpuscular Volume 85.8 fL (80.0-100.0) Mean Corpuscular Hemoglobin 29.7 pg (28.0-32.0) Mean Corpuscular Hemoglobin Concent 34.6 g/dL (32.0-36.0) Red Cell Distribution Width 12.7 % (11.8-14.3) Platelet Count 269 10^3/uL (140-450) Mean Platelet Volume 7.6 fL (6.9-10.8) Neutrophils (%) (Auto) 57.4 % (37.0-80.0) Lymphocytes (%) (Auto) 27.9 % (10.0-50.0) Monocytes (%) (Auto) 12.6 % (0.0-12.0) Eosinophils (%) (Auto) 1.5 % (0.0-7.0) Basophils (%) (Auto) 0.6 % (0.0-2.0) Neutrophils # (Auto) 2.6 10 ^3/uL (1.6-8.6) Lymphocytes # (Auto) 1.3 10 ^3/uL (0.4-5.4) Monocytes # (Auto) 0.6 10 ^3/uL (0-1.3) Eosinophils # (Auto) 0.1 10 ^3/uL (0-0.8) Basophils # (Auto) 0 10 ^3/uL (0-0.2) Nucleated Red Blood Cells 0.0 % Sodium Level 140 mmol/L (136-145) Potassium Level 4.0 mmol/L (3.5-5.1) Chloride Level 102 mmol/L (98-107) Carbon Dioxide Level 29 mmol/L (20-31) Anion Gap 9 (5-15) Blood Urea Nitrogen 17 mg/dL (9-23) Creatinine 1.22 mg/dL (0.700-1.30) Glomerular Filtration Rate Calc 80 mL/min (>90) BUN/Creatinine Ratio 13.9 (10.0-20.0) Serum Glucose 86 mg/dL (74-106) Calcium Level 9.5 mg/dL (8.7-10.4) Total Bilirubin 1.3 mg/dL (0.2-1.0) Aspartate Amino Transferase (AST) 29 U/L (13-40) Alanine Aminotransferase (ALT) 42 U/L (7-40) Alkaline Phosphatase 52 U/L (46-116) Troponin I High Sensitivity < 3 ng/L (</=54) Total Protein 7.3 g/dL (5.7-8.2) Albumin 4.7 g/dL (3.2-4.8) SARS-CoV-2 Antigen (Rapid) Negative (NEGATIVE) D-Dimer, Quantitative 0.30 mg/L FEU (0.0-0.49) Triglycerides Level 64 mg/dL (< 150) Cholesterol Level 186 mg/dL (< 200) LDL Cholesterol 142 mg/dL (< 100) HDL Cholesterol 39 mg/dL (40-59) Test 11/25/24 18:40 B-Type Natriuretic Peptide 3.64 pg/mL (0-100) Other Laboratory Tests 11/26/24 06:39 Brief Hx & Hospital Course: Final diagnoses: Atypical chest pain most likely due to musculoskeletal pain Anxiety and depression GERD Panic attack Hyperbilirubinemia Mixed hyperlipidemia 34-year-old male who was admitted for chest pain and was ruled out for [place] Workup was negative He is asymptomatic now Echocardiogram was done but is still pending Troponins were negative Vital signs are stable The patient is stable for discharge now No new medications Condition at Discharge: Stable Final Diagnosis/Problems List Atypical chest pain most likely due to musculoskeletal pain Anxiety and depression GERD Panic attack Hyperbilirubinemia Mixed hyperlipidemia SNF Discharge Will this Physician continue t: No Discharge Instruct/Medications No Active Prescriptions or Reported Meds Discharge Statement: "Patient was advised to return to the ER or call 911 if any headaches, dizziness, shortness of breath, chest pain, abdominal pain, bleeding, fevers, or worsening of medical condition. Patient was counseled about treatment plan, medications, possible side effects, patientverbalized understanding. All questions were answered to the best of my ability. This discharge took greater then 30 minutes in planning, reviewing documentation, counseling the patient, and discussing with other team members." ASSESSMENT ASSESSMENT Assessment Date of Service: Nov 27, 2024 Billing Provider: SUDHEER BECKER MD Common Visit Codes: 50663-GNX/OBS DISCH DAY >30min SUDHEER BECKER MD Nov 27, 2024 12:02
[2024-11-27 13:00] VITALS: BP 117/76; PULSE 76; RESP 17; TEMP 99; O2SAT 96
--- NOTE | 2024-11-27 14:14 | DVHSR ---
APPROVED REPORT EXAM: Two-dimensional and M-mode echocardiogram with Doppler and color Doppler. Blood Pressure: 120/65 mmHg INDICATION Chest Pain RISK FACTORS Height: 5' 11", Weight: 209 DIMENSIONS LVDd5.0 (3.8-5.7cm)LA (2D)3.1 (1.9-4.0cm)Aortic Root3.2 (2.0-3.7cm) LVDs3.3 (2.5-4.0cm)LA (MM) (1.9-4.0cm)Aortic Cusp Exc2.1 (1.5-2.0cm) EF (%) 62.0 (55-70%)Rt. Atrium2.7 (1.9-4.0cm)Asc. Aorta cm IVSd1.0 (0.7-1.1cm)RV (D) (1.8-2.4cm) PWd0.8 (0.7-1.1cm) Mitral Valve MitralMitral Stenosis E wave0.80m/sMV Mean GR.mmHg A wave0.60m/sMV Peak GR.mmHg E/A ratio1.32D MVAcm2 Aortic Valve Aortic ValveAortic Stenosis V10.90m/Ratna Mean GR.3mmHg V21.10m/Ratna Peak GR.5mmHg LVOT Diameter2.4 (1.8-2.4cm)Doppler AVA3.70cm2 Pulmonic Valve V20.90m/s Conclusion lvef 65% normal rv function normal atria no severe valve abnormaliteis noted
[2024-11-27 14:53] VITALS: TEMP 36.4
== END 2024-11-27 15:10 | disposition home or self-care (01) | DRG 313 ==
LOC: ER 18:37 → OVERFLOW 23:19 → TELE-EAST 11-26 18:15
PROVIDERS: ADMIT Internal Medicine Geriatric Medicine; ATTEND Internal Medicine Geriatric Medicine
DX: R07.89 Other chest pain (principal); K21.9 Gastro-esophageal reflux disease without esophagitis; E80.6 Other disorders of bilirubin metabolism; F41.0 Panic disorder [episodic paroxysmal anxiety]; Z20.822 Contact with and (suspected) exposure to COVID-19; E78.2 Mixed hyperlipidemia; F41.8 Other specified anxiety disorders; Z87.891 Personal history of nicotine dependence; Z88.2 Allergy status to sulfonamides; Z88.1 Allergy status to other antibiotic agents
CPT/HCPCS: 36415; 71045; 80053; 80061; 81001; 83880; 84484; 85025; 85379; 87426; 93306; G0378; J2470